=== PATIENT | male | born 2005 | race African-American/Black ===

== ENCOUNTER 2024-10-16 17:51 | Emergency (ER) | payer OTHER ==
[~2024-10-16] VITALS: Ht 188 cm; Wt 85.0 kg
[2024-10-16 18:08] VITALS: TEMP 36.9; O2SAT 98
[2024-10-16] MEDS: POVIDONE-IODINE 10% TOPICAL SOLN 240ML TOP ONE (19:00)
[2024-10-16] MEDS ORDERED: LIDOCAINE HCL 1% 20ML VIAL INFIL ONE (19:00)
[2024-10-16] MEDS: LIDOCAINE HCL 1% 20ML VIAL INFIL NR (19:15)
[2024-10-16 20:24] VITALS: BP 115/68; PULSE 93; RESP 16; O2SAT 99
== END 2024-10-16 20:26 | disposition home or self-care (01) ==
LOC: ER 17:51
DX: L02.31 Cutaneous abscess of buttock (principal); K61.0 Anal abscess
CPT/HCPCS: 10060; 99282; J3490; J2003

== ENCOUNTER 2024-10-18 17:49 | Emergency (ER) | payer OTHER ==
[~2024-10-18] VITALS: Ht 177.8 cm; Wt 73.0 kg
[2024-10-18 17:55] VITALS: O2SAT 97
[2024-10-18 19:02] VITALS: BP 119/72; PULSE 89; RESP 18; TEMP 36.6; O2SAT 97
== END 2024-10-18 19:03 | disposition home or self-care (01) ==
LOC: ER 17:49
DX: Z48.817 Encounter for surgical aftercare following surgery on the skin and subcutaneous tissue (principal)
CPT/HCPCS: 99281